=== PATIENT | female | born 1985 | race Two or more races ===

== ENCOUNTER 2019-03-30 07:13 | Outpatient (CLI) | payer SELFPAY | END 2019-03-30 23:59 | disposition home or self-care (01) | LOC: ROC 07:13 → MERGE 07:13 → ROC 23:59 | PROVIDERS: ATTEND Radiology Radiation Oncology | DX: C71.6 Malignant neoplasm of cerebellum (principal) | CPT/HCPCS: 99214; G0463 ==

== ENCOUNTER → 2019-09-30 | Outpatient (CLI) | payer OTHER ==
[~2019-09-30] MED LIST: GADOTERATE 7.5 MMOL/15 ML SYR ONE
== END | disposition home or self-care (01) ==
LOC: CFH 09:23
PROVIDERS: ATTEND Radiology Radiation Oncology
DX: Q27.39 Arteriovenous malformation, other site (principal); I10 Essential (primary) hypertension
CPT/HCPCS: 70544; 70553; A9575

== ENCOUNTER → 2019-11-04 | Outpatient (CLI) | payer OTHER | END | disposition home or self-care (01) | LOC: ROC 07:15 | PROVIDERS: ATTEND Radiology Radiation Oncology | DX: Q28.2 Arteriovenous malformation of cerebral vessels (principal) | CPT/HCPCS: 99213; G0463 ==

== ENCOUNTER → 2020-03-23 | Outpatient (CLI) | payer OTHER ==
[~2020-03-23] MED LIST changes: +GADOTERATE 10 MMOL/20 ML SYR ONE; -GADOTERATE 7.5 MMOL/15 ML SYR ONE
== END | disposition home or self-care (01) ==
LOC: CFH 07:08
PROVIDERS: ATTEND Radiology Radiation Oncology
DX: Q28.2 Arteriovenous malformation of cerebral vessels (principal)
CPT/HCPCS: 70544; 70553; A9575

== ENCOUNTER → 2020-03-29 | Outpatient (CLI) | payer OTHER | END | disposition home or self-care (01) | LOC: ROC 07:10 | PROVIDERS: ATTEND Radiology Radiation Oncology | DX: Q28.2 Arteriovenous malformation of cerebral vessels (principal) | CPT/HCPCS: 99213; G0463 ==

== ENCOUNTER → 2020-09-15 | Outpatient (CLI) | payer OTHER ==
[~2020-09-15] MED LIST changes: -GADOTERATE 10 MMOL/20 ML SYR ONE; +GADOTERATE 7.5 MMOL/15 ML SYR ONE
== END | disposition home or self-care (01) ==
LOC: CFH 09:06
PROVIDERS: ATTEND Radiology Radiation Oncology
DX: Q28.2 Arteriovenous malformation of cerebral vessels (principal)
CPT/HCPCS: 70544; 70553; A9575

== ENCOUNTER 2020-09-29 08:31 | Outpatient (CLI) | payer OTHER | END 2020-09-29 23:59 | disposition home or self-care (01) | LOC: ROC 08:31 | PROVIDERS: ATTEND Radiology Radiation Oncology | DX: Z08 Encounter for follow-up examination after completed treatment for malignant neoplasm (principal); Q28.2 Arteriovenous malformation of cerebral vessels | CPT/HCPCS: 99213; G0463 ==